=== PATIENT | male | born 1950 | race Caucasian/White ===

== ENCOUNTER 2016-08-11 16:58 | Emergency (ER) | payer MEDICARE, MEDICAID ==
[~2016-08-11] VITALS: Ht 172.7 cm; Wt 69.0 kg
[~2016-08-11 16:58] MED LIST: BABY ASPIRIN; BENA5TAB3; NAPR-679; SIMV20TA2
[2016-08-11] MEDS ORDERED: ACETAMINOPHEN WITH CODEINE 300/30MG TABLET PO STA (17:45)
[2016-08-11 18:59] LABS: EOSINOPHILS % 0.2 % (0.0-5.0); HEMATOCRIT. 46.1 % (42.0-52.0); HEMOGLOBIN. 15.4 g/dL (14.0-18.0); LYMPHOCYTES % 13.1 % (20.0-50.0); MEAN CORPUSCULAR HEMOGLOBIN 30.4 pg (28.0-32.0); MEAN CORPUSCULAR HGB CONC 33.3 g/dL (31.0-37.0); MEAN CORPUSCULAR VOLUME 91.1 fL (80.0-94.0); MEAN PLATELET VOLUME 8.5 fl (7.4-10.4); NEUTROPHILS % 79.7 % (40.0-76.0); PLATELET 168 x1000/uL (130-400); RED BLOOD CELL COUNT 5.06 mill/uL (4.7-6.1); RED CELL DISTRIBUTION WIDTH 13.4 % (11.6-14.6); WHITE BLOOD COUNT 12.4 x1000/uL (4.5-11.0)
[2016-08-11 19:07] LABS: INR 1.1; PROTHROMBIN TIME 11.4 sec
[2016-08-11 19:10] LABS: ALBUMIN 4.4 g/dL (3.4-5.0); ANION GAP 13; CALCIUM 9.3 mg/dL (8.5-10.1); CARBON DIOXIDE 27 mEq/L (21-32); CHLORIDE 105 mEq/L (98-107); INDEX HEMOLYSI 1 (1-3); INDEX ICTERIC 1 (1-4); INDEX LIPEMIC 1 (1-3); UREA NITROGEN BLOOD 28 mg/dL (7-21)
[2016-08-11 19:13] LABS: ALANINE AMINOTRANSFERASE 31 IU/L (13-61); eGFR > 60 mL/min (>60)
[2016-08-11] MEDS ORDERED: MORPHINE SULFATE 4 MG/ML CPJ (NOT FOR IM USE) IV ONE (19:30)
[2016-08-11 21:20] VITALS: BP 150/83
== END 2016-08-11 22:17 | disposition home or self-care (01) ==
LOC: ER 16:58
DX: H57.13 Ocular pain, bilateral (principal); R51 Headache; R47.81 Slurred speech; R53.1 Weakness; E11.9 Type 2 diabetes mellitus without complications; I10 Essential (primary) hypertension; Z86.73 Personal history of transient ischemic attack (TIA), and cerebral infarction without residual deficits
CPT/HCPCS: 36415; 70450; 70486; 71010; 80053; 85025; 85610; 85651; 93005; 96374; 99285; J2270

== ENCOUNTER 2019-01-22 15:41 | Emergency (ER) | payer MEDICAID, MEDICARE ==
[~2019-01-22] VITALS: Ht 172.7 cm; Wt 78.0 kg
[~2019-01-22 15:41] MED LIST changes: +AMLO2.5T45 PO; -BENA5TAB3; +BENA5TAB6; +GABA-531 PO; +LEVE500T98 PO; -NAPR-679; +NAPR-681 PO
[2019-01-22] MEDS ORDERED: ONDANSETRON HCL 4MG/2ML INJ IV ONE (16:00)
[2019-01-22] MEDS ORDERED: MORPHINE SULFATE 4 MG/ML CPJ (NOT FOR IM USE) IV ONE (16:00)
[2019-01-22 16:18] LABS: BASOPHILS % 0.9 % (0.0-2.0); EOSINOPHILS % 3.3 % (0.0-5.0); HEMATOCRIT. 42.4 % (42.0-52.0); HEMOGLOBIN. 14.4 g/dL (14.0-18.0); LYMPHOCYTES % 13.4 % (20.0-50.0); MEAN CORPUSCULAR HEMOGLOBIN 30.7 pg (28.0-32.0); MEAN CORPUSCULAR VOLUME 90.1 fL (80.0-94.0); MEAN PLATELET VOLUME 7.3 fl (7.4-10.4); MONOCYTES % 13.2 % (2.0-8.0); NEUTROPHILS % 69.2 % (40.0-76.0); PLATELET 298 x1000/uL (130-400); RED CELL DISTRIBUTION WIDTH 13.1 % (11.6-14.6)
[2019-01-22 16:22] LABS: CHLORIDE 101 mEq/L (98-107)
[2019-01-22 16:23] LABS: INR 1.1; PROTHROMBIN TIME 11.6 sec (9.6-11.0)
[2019-01-22 18:01] LABS: CLARITY URINE CLEAR (CLEAR); COLOR URINE DARK YELLOW (YELLOW); KETONES URINE TRACE (NEGATIVE); LEUKOCYTE ESTERASE URINE NEGATIVE (NEGATIVE); NITRITE URINE NEGATIVE (NEGATIVE); OCCULT BLOOD URINE 2+ (NEGATIVE); PROTEIN URINE 1+ (NEGATIVE); SPECIFIC GRAVITY URINE 1.026 (1.005-1.030)
[2019-01-22 18:12] VITALS: BP 136/86
[2019-01-22] MEDS ORDERED: CEFTRIAXONE 1 G PREMIX 50 ML IV NR (18:30)
== END 2019-01-22 18:59 | disposition home or self-care (01) ==
LOC: ER 15:41
DX: N39.0 Urinary tract infection, site not specified (principal); R31.9 Hematuria, unspecified; E11.9 Type 2 diabetes mellitus without complications; E78.00 Pure hypercholesterolemia, unspecified; I10 Essential (primary) hypertension; Z86.73 Personal history of transient ischemic attack (TIA), and cerebral infarction without residual deficits; Z79.899 Other long term (current) drug therapy
CPT/HCPCS: 36415; 51702; 74176; 80053; 81003; 83690; 85025; 85610; 96374; 96375; 99284; J2270; J2405